=== PATIENT | female | born 1985 | race Caucasian/White ===

== ENCOUNTER 2019-06-11 05:57 | Inpatient (IN) | payer OTHER ==
[~2019-06-11 05:57] MED LIST: Buffered Lidocaine 1% SYRIN* 1 ML/SYRINGE INTRADERM ONE
[2019-06-11] MEDS ORDERED: Lactated Ringers 1000 ML Bag* 1,000 ML IV SCH ×2 (06:00→10:00)
[2019-06-11] MEDS ORDERED: Famotidine IV* 10 MG/ML 2 ML (20 mg) IV ONE (06:00)
[2019-06-11] MEDS ORDERED: ceFAZolin* 2 GM* X ONE DOSE - OR, MCH (Pyxis) (Duplex) IVPB (07:00)
[2019-06-11 07:25] LABS: Urine Benzodiazepine Screen None Detected (None Detect); Urine Opiates Screen None Detected (None Detect)
[2019-06-11] MEDS ORDERED: KETAMINE HCL* 50 MG/ML 10 ML VIAL ONE (07:36)
[2019-06-11] MEDS ORDERED: fentaNYL* 50 MCG/ML 2 ML VIAL (100 MCG VIAL) ONE (07:36)
[2019-06-11] MEDS ORDERED: Midazolam* 1 MG/ML 5 ML VIAL (5 MG) ONE (07:36)
[2019-06-11] MEDS ORDERED: Morphine PF AMP (0.5MG/ML)* 5 MG/10 ML AMP ONE (07:36)
[2019-06-11] MEDS ORDERED: Nalbuphine* 10 MG/ML 1 ML VIAL IV PRN (08:18)
[2019-06-11] MEDS ORDERED: Ondansetron INJ* 2 MG/ML VIAL IV PRN (08:18)
[2019-06-11] MEDS ORDERED: diPHENhydraMINE IV* 50 MG/ML 1 ml VIAL (BENADRYL) IV PRN (08:18)
[2019-06-11] MEDS ORDERED: Naloxone* 0.4 MG/ML 1 ML VIAL IV PRN ×2 (08:18→08:22)
[2019-06-11] MEDS ORDERED: DiMENhydriNATE IV* 50 MG/ML VIAL IV PUSH PRN (08:18)
[2019-06-11] MEDS ORDERED: oxyCODONE/Acetamin 5/325 MG* TAB PO PRN ×2 (08:18→09:33)
[2019-06-11] MEDS ORDERED: Naloxone* 2 MG in NS 0.9% 250 ML* 250 ML IV PRN (08:18)
[2019-06-11] MEDS ORDERED: PROCHLORPERAZINE INJ 5 MG/ML 2 ML VIAL IV PRN (08:18)
[2019-06-11] MEDS ORDERED: fentaNYL* 50 MCG/ML 2 ML VIAL (100 MCG VIAL) IV PRN (08:22)
[2019-06-11] MEDS ORDERED: OXYTOCIN* 10 UNITS/ML 1 ML VIAL ONE (09:08)
[2019-06-11] MEDS ORDERED: PROCHLORPERAZINE INJ 5 MG/ML 2 ML VIAL ONE (09:08)
[2019-06-11] MEDS ORDERED: Scopolamine 1.5 mg* PATCH ONE (09:08)
[2019-06-11] MEDS ORDERED: Ketorolac INJ* 30 MG/ML 1 ML VIAL ONE (09:08)
[2019-06-11] MEDS ORDERED: EPHEDrine (Pressors)* 50 MG/ML VIAL ONE (09:08)
[2019-06-11] MEDS ORDERED: Phenylephrine 10 MG/ML VIAL* 1 ML VIAL ONE (09:08)
[2019-06-11] MEDS ORDERED: Dexamethasone IV* 4 MG/ML 1 ML (4 MG) ONE (09:08)
[2019-06-11] MEDS ORDERED: Ondansetron INJ* 2 MG/ML VIAL ONE (09:08)
[2019-06-11] MEDS ORDERED: Witch Hazel PAD* JAR TOPICAL PRN (09:33)
[2019-06-11] MEDS ORDERED: Glycerin ADULT SUPP PR PRN (09:33)
[2019-06-11] MEDS ORDERED: Dibucaine 1% 28.35 GM TUBE PR PRN (09:33)
[2019-06-11] MEDS ORDERED: Oxytocin in LR* 20 UNITS/1,000 ML BAG IVPB SCH (10:00)
--- NOTE | 2019-06-11 10:49 | OP ---
OPERATIVE REPORT: DATE OF OPERATION: 06/11/19 DATE OF : 87 SURGEON: Joan Yancey MD EXTRA HAND: Nils Cardenas DO ANESTHESIOLOGIST: Dr. Yu. ANESTHESIA: Spinal. PRE-OP DIAGNOSIS: Intrauterine 37 and 0/7 weeks with mild preeclampsia. POST-OP DIAGNOSIS: Intrauterine 37 and 0/7 weeks with mild preeclampsia, delivered. OPERATIVE PROCEDURE: Repeat low transverse section and bilateral tubal ligation with vacuum-assist delivery. ESTIMATED BLOOD LOSS: 600 cc. URINE OUTPUT: 300 cc of clear yellow urine. IV FLUIDS: 3000 cc crystalloid total, 2000 intraoperatively. FINDINGS: Revealed a vertex female , Apgars were 8 at 1 minute and 8 at 9 minutes. Weight was 7 pounds 11 ounces. Nuchal cord x1. No meconium. Clear fluid. Normal-appearing placenta, 3-vessel cord, manually extracted and intact. Normal-appearing tubes and ovaries bilaterally. Cord blood collection performed. SPECIMENS: Bilateral portion of tube with fimbria bilaterally. COMPLICATIONS: None apparent. DISPOSITION: Stable to recovery room. DESCRIPTION OF PROCEDURE: The patient was placed in dorsal supine position. The abdomen was prepped and draped in standard sterile fashion. Anesthesia was tested to appropriate level after sterile standard prep and drape. The patient was identified with universal protocol for correct procedure, position, and patient. Incision was made through prior incision using a scalpel. This was carried down through to the fascia using Bovie. The fascia was scored in the midline and the fascial incision extended laterally and superiorly with Lacy scissors. The Kochers were used superiorly and inferiorly to separate the rectus fascia from the rectus muscle using blunt and sharp dissection. The peritoneum was entered bluntly. Incision was extended bluntly. The bladder blade was inserted. Lower uterine segment was identified, tented up with an Allis. An incision was made with scalpel. This was carried down through the membranes. Clear fluid was noted. Uterine incision was extended laterally and superiorly using bandage scissors. Infant was delivered vertex with the assistance of vacuum x1. Nuchal cord was reduced. Baby was vigorous. Excellent cord pulsation. Cord was milked, clamped, and then the was handed off to awaiting counseling program leader. Appropriate section of cord blood was obtained and the cord blood bank specimen was then obtained in a sterile standard fashion. Placenta was then manually extracted and noted to be intact 3 -vessel cord and the uterus was exteriorized, wrapped with warm moist laparotomy sponge. Hysterotomy and uterine cavity was explored and noted to be free of any membranes or placental tissue. The uterine incision itself was reapproximated using 0 Vicryl x2. First layer locked second layer was imbricated. Hemostasis was noted. The fimbriae were evaluated. The patient confirmed again that she wanted a permanent form of sterility with tubal ligation. The left tube was clamped with [place] and the Milana was placed across the mesosalpinx and distal fimbriae. A free tie of 2-0 Vicryl was placed and then ligature-suture of 2-0 Vicryl was placed. The tube was then excised using Metzenbaum scissors. Hemostasis was assured at the fimbriectomy and tubal ligation site. The same portion of the procedure was repeated in the exact same fashion on the right. Hemostasis was assured. Uterus was returned intraabdominally. Colic gutters were lavaged. Hysterotomy site was confirmed to be hemostatic. Tubal ligation sites were confirmed to be hemostatic. The peritoneum was then reapproximated using 3-0 Vicryl in a running fashion. The fascia/prefascial area was visualized. Hemostasis was assured and the fascia was then reapproximated using 0 Vicryl x2 in a running fashion. A fat stitch was then placed using 2-0 Vicryl in an interrupted fashion after confirming hemostasis of Camper's fascia. Then, the skin was reapproximated using 4-0 Monocryl in a subcuticular fashion. Mastisol and Steri's were applied. All sponge, needle, and blade counts were correct at the end of the case. The patient tolerated the procedure well and went to the recovery room in stable condition. [id number]/[facility] #: [id number] [facility]ITALMaral
[2019-06-11] MEDS: Docusate CAP* 100 MG PO SCH ×2 (14:00→20:37)
[2019-06-11] MEDS: Simethicone TAB* 80 MG TAB.CHEW PO SCH ×3 (15:00→20:37)
[2019-06-11] MEDS: Ketorolac INJ* 30 MG/ML 1 ML VIAL IV PRN ×2 (15:00→21:15)
[2019-06-12] MEDS: Ketorolac INJ* 30 MG/ML 1 ML VIAL IV PRN (03:30)
[2019-06-12 08:23] LABS: ABS Lymphocytes 2.6 10^3/ul (1.0-4.8); ABS Monocytes 0.9 10^3/ul (0-0.8); ABS Neutrophils 7.6 10^3/ul (1.5-7.7); Eosinophil % 0.2 %; Hematocrit 31 % (35-47); Hemoglobin 10.6 g/dL (12.0-16.0); Lymphocyte % 23.1 %; Mean Corpuscular HGB Conc 34 g/dL (31-36); Mean Corpuscular Hemoglobin 33 pg (27-31); Mean Corpuscular Volume 95 fL (80-97); Mean Platelet Volume 10.3 fL (7.4-10.4); Platelet Count 174 10^3/uL (150-450); Red Blood Count 3.24 10^6 /uL (3.70-4.87); Red Cell Distribution Width 14 % (10-15); White Blood Count 11.1 10^3/uL (3.5-10.8)
[2019-06-12] MEDS ORDERED: Ferrous Gluconate TAB* 324 MG TAB PO SCH (09:00)
[2019-06-12] MEDS: Docusate CAP* 100 MG PO SCH ×3 (09:07→21:58)
[2019-06-12] MEDS: Simethicone TAB* 80 MG TAB.CHEW PO SCH ×4 (09:08→21:58)
[2019-06-12] MEDS: Ibuprofen TAB* 600 MG PO PRN ×3 (10:07→21:56)
[2019-06-12] MEDS: Acetaminophen TAB* 325 MG PO PRN (21:58)
[2019-06-13] MEDS: Acetaminophen TAB* 325 MG PO PRN ×4 (04:10→21:10)
[2019-06-13] MEDS: Ibuprofen TAB* 600 MG PO PRN ×4 (04:10→23:53)
[2019-06-13] MEDS: Simethicone TAB* 80 MG TAB.CHEW PO SCH ×4 (08:41→21:10)
[2019-06-13] MEDS: Docusate CAP* 100 MG PO SCH ×3 (08:41→21:10)
[2019-06-14] MEDS: Acetaminophen TAB* 325 MG PO PRN ×2 (04:29→08:49)
[2019-06-14] MEDS: Ibuprofen TAB* 600 MG PO PRN (08:01)
[2019-06-14] MEDS: Simethicone TAB* 80 MG TAB.CHEW PO SCH (08:01)
[2019-06-14] MEDS: Docusate CAP* 100 MG PO SCH (08:01)
[2019-06-14] MEDS ORDERED: Scopolamine PATCH Remove* 1 NOTE MISC PATCH OFF PRN (08:19)
[2019-06-14 08:31] VITALS: BP 132/77
== END 2019-06-14 10:52 | disposition home or self-care (01) | DRG 785 ==
LOC: MCHOB 05:57
PROVIDERS: ADMIT Obstetrics & Gynecology; ATTEND Obstetrics & Gynecology
PROC: 0UB70ZZ Excision of Bilateral Fallopian Tubes, Open Approach (ICD-10-PCS; 2019-06-11)
PROC: 10D00Z1 Extraction of Products of Conception, Low, Open Approach (ICD-10-PCS; principal; 2019-06-11 07:45)
DX: O34.211 Maternal care for low transverse scar from previous cesarean delivery (principal); O14.04 Mild to moderate pre-eclampsia, complicating childbirth; O69.81X0 Labor and delivery complicated by cord around neck, without compression, not applicable or unspecified; Z3A.37 37 weeks gestation of pregnancy; Z37.0 Single live birth; Z30.2 Encounter for sterilization
CPT/HCPCS: 36415; 80307; 85025; 88302; A9270-GY; J0690; J0780; J1100; J1200; J1240; J1885; J2250; J2405; J2590; J3010